=== PATIENT | male | born 1950 | race Caucasian/White ===

== ENCOUNTER → 2020-08-05 | Outpatient (CLI) | payer MEDICARE, BC ==
[~2020-08-05] MED LIST: ASCO500 PO; ATOR80 PO; Abilify2 MG PO; Aspirin EC81 MG PO; CLON.5 PO; CLON1 PO; CLONAZEPAM1 MG PO; CLOP75 PO; DESV50 PO; DESVENLAFAXINE50 M3 PO; LISI20 PO; MELA3 PO; Multivitamin1 EAC1 PO; PROBIOTIC1 EAC1 PO; Revlimid5 MG PO; SILD50TA PO; TAMS.4ER PO
[2020-08-05 12:57] LABS: Source, Urine Clean Catch
[2020-08-05 17:57] LABS: Appearance, Urine Clear (Clear); Bilirubin, Urine Neg (Neg); Blood, Urine Neg (Neg); Color, Urine Yellow (P-Yellow); Glucose Qualitative, Urine Neg (Neg); Ketones, Urine Neg (Neg); Leukocyte Esterase, Urine Neg (Neg); Nitrite, Urine Neg (Neg); Protein, Urine Neg (Neg); Urobilinogen, Urine NORM (Normal)
== END | disposition home or self-care (01) ==
LOC: LAB 12:50 → LAB SHORT 12:50
PROVIDERS: Family Medicine
DX: R30.9 Painful micturition, unspecified (principal)
CPT/HCPCS: 81003

== ENCOUNTER → 2023-08-23 | Outpatient (CLI) | payer MEDICARE, BC ==
[~2023-08-23] MED LIST changes: +CBD; +PREG75; +SINEMET 25-1001 EAC1; +THC; +XGEVA120 MG/1.1
[2023-08-23 17:41] LABS: Source, Urine Voided
[2023-08-23 18:56] LABS: Appearance, Urine Bloody (Clear); Bilirubin, Urine Neg (Neg); Blood, Urine 5+ (Neg); Color, Urine Red (P-Yellow); Glucose Qualitative, Urine Neg (Neg); Ketones, Urine 1+ (Neg); Leukocyte Esterase, Urine 1+ (Neg); Nitrite, Urine Neg (Neg); Protein, Urine 4+ (Neg); Specific Gravity, Urine 1.025 (1.003-1.022); Urobilinogen, Urine NORM (Normal)
[2023-08-23 19:17] LABS: Red Blood Cells, Urine TNTC /hpf (0-2)
[2023-08-23 19:18] LABS: Bacteria Rare /hpf; Renal Epithelial Rare /hpf (0-Rare); Squamous Epithelial Cells Rare /hpf (Few)
== END ==
LOC: LAB SHORT 17:39 → LAB 17:39
PROVIDERS: Family Medicine
DX: R31.0 Gross hematuria (principal)
CPT/HCPCS: 81001; 87086

== ENCOUNTER 2023-08-28 11:39 | Day surgery (SDC) | payer MEDICARE, BC ==
[~2023-08-28] VITALS: Ht 180.3 cm; Wt 115.2 kg
[~2023-08-28 11:39] MED LIST changes: -CBD; -PREG75; -SINEMET 25-1001 EAC1; -THC; -XGEVA120 MG/1.1
[2023-08-28] MEDS ORDERED: PREG75 (12:09)
[2023-08-28] MEDS ORDERED: CBD (12:10)
[2023-08-28] MEDS ORDERED: XGEVA120 MG/1.1 (12:10)
[2023-08-28] MEDS ORDERED: THC (12:10)
[2023-08-28] MEDS ORDERED: SINEMET 25-1001 EAC1 (12:11)
[2023-08-28 14:29] VITALS: BP 117/85
== END 2023-08-28 14:38 | disposition home or self-care (01) ==
LOC: ORSCSDS 11:39
PROVIDERS: Internal Medicine Gastroenterology
PROC: 0DBK8ZX Excision of Ascending Colon, Via Natural or Artificial Opening Endoscopic, Diagnostic (ICD-10-PCS; principal; 2023-08-28 13:00)
PROC: 0DBH8ZX Excision of Cecum, Via Natural or Artificial Opening Endoscopic, Diagnostic (ICD-10-PCS; principal; 2023-08-28 13:00)
DX: Z12.11 Encounter for screening for malignant neoplasm of colon (principal); Z86.010 Personal history of colon polyps; D12.0 Benign neoplasm of cecum; D12.2 Benign neoplasm of ascending colon; K64.8 Other hemorrhoids; K57.30 Diverticulosis of large intestine without perforation or abscess without bleeding; I10 Essential (primary) hypertension; G20.A1 Parkinson's disease without dyskinesia, without mention of fluctuations; Z86.73 Personal history of transient ischemic attack (TIA), and cerebral infarction without residual deficits; Z68.35 Body mass index [BMI] 35.0-35.9, adult; Z79.82 Long term (current) use of aspirin; Z79.02 Long term (current) use of antithrombotics/antiplatelets; Z79.899 Other long term (current) drug therapy
CPT/HCPCS: 88305; J2405; J2704; J7120

== ENCOUNTER → 2023-11-25 | Outpatient (CLI) | payer MEDICARE, BC ==
[~2023-11-25] MED LIST changes: +CBD; +PREG75; +SINEMET 25-1001 EAC1; +THC; +XGEVA120 MG/1.1
== END ==
LOC: LAB SHORT 11:59
DX: N39.0 Urinary tract infection, site not specified (principal)
CPT/HCPCS: 87077; 87086; 87186